=== PATIENT | male | born 1935 | race Caucasian/White ===

== ENCOUNTER 2016-07-01 13:08 | Outpatient (CLI) | payer OTHER ==
--- NOTE | 2016-07-01 18:00 | DIAGNOSTIC IMAGING REPORT ---
REFERRING PHYSICIAN/PROVIDER: Edgar Grant MD CONSULTING STATION OPERATOR: Willem Oreilly MD PROCEDURE: M-mode 2D echocardiography with spectral and color flow Doppler TECHNICAL QUALITY: The overall quality of the echo is fair INDICATION: SOB ON EXCERTION RHYTHM DURING PROCEDURE: Undetermined rhythm INTERPRETATIONS: LEFT VENTRICLE: The left ventricular size appears mildly dilated to however the left ventricular volume index is normal at 70 19. The interventricular septum measures 1.5 cm and the posterior wall measures 1.5 cm. Taking the talar there is likely mild left ventricular hypertrophy noted. The ejection fraction is visually estimated at 60%. There is grade 1 diastolic dysfunction which is likely normal for age RIGHT VENTRICLE: There is normal right ventricular size and function ATRIA: Both atria appear upper end of normal cannot rule out interatrial septal defect. MITRAL VALVE: The mitral valve is grossly normal. There is trace mitral regurgitation noted. AORTIC VALVE: The aortic valve opens well. There were gradients noted within the left ventricle. Suspect this is not related to aortic stenosis mean gradient however was noted at 11 mmHg. TRICUSPID VALVE: There is mild to moderate tricuspid regurgitation noted. The estimated right ventricular systolic pressure is 23 HU. PULMONIC VALVE: There is trace to mild pulmonic regurgitation noted. GREAT VESSELS: The aortic root measures 4.1 cm which is mildly dilated and the ascending aorta measures 3.9 cm which is mildly dilated. PERICARDIUM: There is no significant pericardial effusion noted IMPRESSION: 1. Normal biventricular size and systolic function 2. Mild left ventricular hypertrophy 3. Upper normal biatrial size 4. No significant valvular stenosis or regurgitation 5. Normal estimated right ventricular systolic pressure 6. Mildly dilated aortic root 4.1 cm and proximal ascending aorta 3.9 cm.
== END 2016-07-01 23:00 ==
LOC: US SRH 13:08
DX: R06.02 Shortness of breath (principal)